=== PATIENT | female | born 1965 | race Caucasian/White ===

== ENCOUNTER 2021-07-01 17:44 | Outpatient (CLI) | payer BC, SELFPAY ==
--- NOTE | ~2021-07-01 | MR_ITS ---
EXAMINATION: MR knee RT wo con DATE: 07/01/2021 18:32 INDICATION: Right knee pain. TECHNIQUE: Magnetic resonance imaging (MRI) of the right knee was performed without intravenous contr ast. Sequences included axial PD-weighted FS FSE, coronal PD-weighted FSE and PD-weighted FS FSE, sag ittal PD-weighted FSE, and sagittal T2-weighted FS FSE. COMPARISON: Right knee radiographs 06/09/2021 FINDINGS: Medial compartment: There is an undersurface horizontal tear involving body and posterior horn of medial meniscus. There is shallow partial-thickness cartilage loss of tibial condyle involving the medial articular surface with mild subchondral edema-like marrow signal intensity. Femoral cartilage is normal. There are tiny osteophytes. Lateral compartment: Lateral meniscus is normal. Lateral compartment cartilage is normal. There are tiny osteophytes. Patellofemoral compartment: There is deep partial thickness cartilage loss at the junction of patellar medial facet and odd facet . There is deep partial thickness cartilage loss of central trochlea. There are tiny osteophytes. Ligaments and tendons: The anterior and posterior cruciate ligaments are normal. There is edema around medial collateral lig ament, consistent with mild sprain. Lateral collateral ligament complex is normal. There is mild berg llar tendinopathy. Fluid: There is a small knee joint effusion. There is mild prepatellar and superficial infrapatellar bursiti s. IMPRESSION: 1. Moderate chondrosis of patellofemoral compartment and mild chondrosis of medial compartment. 2. Tear of medial meniscus. 3. Mild sprain of medial collateral ligament (grade 1). 4. Small knee joint effusion. Reviewed, dictated and finalized at location [facility]. [facility] IMPRESSION: 1. Moderate chondrosis of patellofemoral compartment and mild chondrosis of med ial compartment. 2. Tear of medial meniscus. 3. Mild sprain of medial collateral ligament (grade 1). 4. Small knee joint effusion.
== END 2021-07-01 17:45 ==
PROVIDERS: Visit Provider Nurse Practitioner Family
DX: M25.561 Pain in right knee (principal); M22.2X1 Patellofemoral disorders, right knee; S83.241A Other tear of medial meniscus, current injury, right knee, initial encounter; S83.411A Sprain of medial collateral ligament of right knee, initial encounter; M25.461 Effusion, right knee
CPT/HCPCS: 73721

== ENCOUNTER 2021-07-16 11:11 | Outpatient (CLI) | payer BC, SELFPAY ==
--- NOTE | 2021-07-16 11:30 | ECG_ITS ---
Measurements Intervals [place] Rate: 70 P: 39 DC: 176 QRS: 16 QRSD: 89 T: 15 QT: 408 QTc: 442 Interpretive Statements SINUS RHYTHM LOW QRS VOLTAGE IN PRECORDIAL LEADS [QRS DEFLECTION < 1.0 mV IN CHEST LEADS] CANNOT RULE OUT OLD ANTERIOR VT NO PREVIOUS ECG AVAILABLE FOR COMPARISON Electronically Signed On 07-16-2021 18:44:27 CDT by Edda Trinidad M.D.
[2021-07-16 11:49] LABS: Anion Gap 4 mmol/L (8-16); Blood Urea Nitrogen 16 mg/dL (7-17); Calcium 8.7 mg/dL (8.4-10.2); Carbon Dioxide 31 mmol/L (22-30); Chloride 100 mmol/L (98-107); Estimated Glomerular Filt Rate > 60; Glucose 158 mg/dL (65-110); Sodium 135 mmol/L (137-145)
== END 2021-07-16 11:12 | disposition home or self-care (01) ==
LOC: ANHSURGERY 11:16
PROVIDERS: Anesthesiology; PCP Internal Medicine; Visit Provider Orthopaedic Surgery
DX: Z01.818 Encounter for other preprocedural examination (principal); E78.5 Hyperlipidemia, unspecified; I10 Essential (primary) hypertension; Z51.81 Encounter for therapeutic drug level monitoring; Z79.899 Other long term (current) drug therapy
CPT/HCPCS: 36415; 80048; 93005

== ENCOUNTER 2021-07-23 00:35 | Day surgery (SDC) | payer BC, SELFPAY ==
[2021-07-15 09:48] VITALS: BMI 32.9
--- NOTE | 2021-07-15 10:00 | PC.NURSE ---
Report to the Outpatient Waiting Room, entrance under the green pavilion located off [facility], at time 6:00 on date 07/23/21. OR Time: 8:00. - You and your visitor will be asked a series of questions to screen for COVID 19 for your protection. - A mask is required within the hospital. One visitor will be allowed to accompany the patient into the hospital. Patients visitor will be instructed to remain with patient at all times or leave the building. We will allow the visitor to come back to the postoperative area when patient is ready. Preoperative COVID Testing Requirements: No COVID Test needed if: (proof is required; if not received patient will have Rapid Test prior to entry) - Patient has received COVID Vaccine at least 14 days prior to procedure date or - Patient has positive COVID test result within last 90 days of surgery date. COVID Test needed if above criteria is not met Patients may have clear liquids (water, carbonated beverages, clear teas, apple juice) until 3 hours prior to surgery (5:00) with a maximum of 20 ounces. - No food from midnight until time of surgery Take the following medications with a SIP of water the morning of surgery: ESTRADIOL, VERAPAMIL, PAIN PILL (IF NEEDED) Medications to discontinue per physician: N/A Date to take last dose: N/A Please no make-up, nail faroese, hairspray, perfume, deodorant, or body powder the day of surgery. No jewelry (including any body piercings) or valuables the day of surgery, leave them at home. Please take a shower or bath the night before, or the morning of, surgery with an antibacterial soap. Wear comfortable, loose fitting clothing. - Jewelry must be removed prior to entering the operating room. Rings and piercings that are not removed may be cut off. - The hospital will not accept responsibility for valuables. - Please leave all valuables, including medications, at home the day of surgery. If you are going home after surgery, a licensed line haul driver must drive you home. - NO public transportation without another adult. - We recommend that an adult stay with you for 24 hours following discharge. - We also recommend that you do not drive, make important decision, drink alcoholic beverages, or take any drugs that were not prescribed by your health care provider for at least 24 hours after your discharge time. Follow any additional instructions given to you from your surgeon. Telephone instructions given to RAFA NOALND and asked if any additional questions and then verbalized understanding. Patient advised to call surgeon office or pre surgery nurse liaison [phone] if any additional questions.
[2021-07-23] VITALS (7 sets, daily range): BP systolic 108–151; BP diastolic 74–96; PULSE 67–94; RESP 12–18; TEMP 36.5–36.6; O2SAT 92–98
--- NOTE | 2021-07-23 06:41 | WPDANESEPPF ---
Anes - Initial Pre Proc Eval Procedure: Operation Date: 07/23/21 08:00 Proposed Procedures p Right Knee Arthroscopy, Debride Meniscus, Synovectomy, Chondroplasty, Proceed As Indicated - Negro Domínguez MD Date/Time: 07/23/21 06:41 Surgeon: Negro Domínguez MD Pre Op Diagnosis: rt knee pain, rt meniscus tear,chondromylasia,syno Patient Data Age: 55 Gender: F Height: 1.57 m Weight: 81.65 kg Allergies Allergy/AdvReac Type Severity Reaction Status Date / Time codeine Allergy Severe NAUSEA AND Verified 07/15/21 09:46 VOMITING Sulfa (Sulfonamide Allergy Severe HIVES Verified 07/15/21 09:46 Antibiotics) cephalexin Allergy Unknown Unknown Verified 07/15/21 09:46 CEPHALEXIN MONOHYDRATE Allergy Severe HIVES Uncoded 07/15/21 09:46 FOFAMAY Allergy Severe HIVES Uncoded 07/15/21 09:46 Home Medications Medication Instructions Recorded Confirmed Type hydrocodone 7.5 mg-acetaminophen 1 tablet PO Q6H PRN 06/09/21 07/15/21 History 300 mg tablet atorvastatin 20 mg PO HS 07/15/21 07/15/21 History cyclobenzaprine 10 mg PO HS PRN 07/15/21 07/15/21 History esomeprazole magnesium 40 mg PO BID 07/15/21 07/15/21 History estradiol 2 mg PO DAILY 07/15/21 07/15/21 History losartan-hydrochlorothiazide 1 tablet PO DAILY 07/15/21 07/15/21 History verapamil 360 mg PO DAILY 07/15/21 07/15/21 History Patient hx anesthesia problems: post op nausea/vomiting Family hx anesthesia problems: none Results Review: All pre-operative results and documents have been reviewed as part of the pre-operative evaluation. [facility] Past Medical History Medical History Arthritis Claustrophobia GERD (gastroesophageal reflux disease) High cholesterol HLD (hyperlipidemia) HTN (hypertension) Knee effusion, right Medial meniscus tear Obesity LIBERTAD (obstructive sleep apnea) Osteoporosis Right knee pain Traumatic arthritis of left wrist Weight gain Surgical History Surgical History History of breast surgery Right History of elbow surgery Bilateral History of right knee surgery History of toe surgery Right great toe Family History Family History Other Cerebrovascular accident Diabetes mellitus Family history of arthritis Family history of malignant neoplasm HLD (hyperlipidemia) Heart disease Hypertension Social History Social History Smoking packs per day: 0.5 Smoking cigarettes per day: 10.0 Years smoked: 36 Smoking pack-years: 18.00 Smoking status: Current every day smoker Tobacco type: cigarettes Additional smoking assessment comments: SMOKED 2 PACKS/DAY X 6 YRS - DOWN TO 1/2 PACK SINCE JUN. Alcohol intake: never Substance use: never Substance use type: does not use Living arrangements: with family Gender identity (if verbalized by the patient): Female Spiritual care concerns: No Anes - Eval Final PreProcedure Day of Procedure 07/23/21 06:41 Patient weight: obese Heart: regular rate and rhythm Lungs: decreased breath sounds Airway: Mallampati scale class II Neurological: alert and oriented Last oral intake: >/= 8 hours ASA classification: III Emergent: no Anesthetic plan: proceed Anesthesia type and monitoring: general LMA and standard monitoring Results Review: All pre-operative results and documents have been reviewed as part of the pre-operative evaluation. Informed Consent: The patient's anesthetic plan and its attendant risks and benefits were discussed with the patient/family/POA. Questions were solicited and answers provided to the satisfaction of the patient/family/POA.
[2021-07-23] MEDS: LACTATED RINGERS 1,000 ML 30 ML IV CONT (06:50)
--- NOTE | 2021-07-23 06:50 | WPDHPUPDATE1 ---
History and Physical Update Update Date/Time: 07/23/21 06:50 History and Physical has been reviewed, including an updated exam of the patient. There are NO changes in the patient's condition. Risks, benefits, and alternatives have been discussed and questions answered. Patient agrees to proceed with procedure.
[2021-07-23] MEDS: SCOPOLAMINE 1.5 MG PATCH TRANSDERM (06:51)
[2021-07-23] MEDS: ACETAMINOPHEN 500 MG TABLET 1000 MG PO (06:51)
[2021-07-23] MEDS: KETOROLAC 15 MG/ML VIAL (*BKC) IV PUSH (06:51)
[2021-07-23] MEDS: CLINDAMYCIN 900 MG/D5W 50 ML 900 MG/50 ML PIGGYBACK 50 MG IVPB (08:47)
[2021-07-23] MEDS: BUPIVACAINE HCL 0.25% PF 30 ML VIAL INFILTRATE (09:24)
--- NOTE | 2021-07-23 10:03 | W.PM.PROC2 ---
Procedure Note - Detailed Date of Procedure 07/23/21 Pre-op Diagnosis rt knee pain, rt meniscus tear,chondromylasia,synovectomy Post-op Diagnosis Same Procedure Performed RT knee arthroscopy, partial medial meniscectomy, chondroplasty, synovectomy Surgeon Negro Domínguez MD Regional Account Director 1st housing assistant property manager Anesthesia General Indications 55 yo woman with rt knee pain unresolved with injection, therapy, meds. MRI shows medial meniscus tear, chondromalacia. Presents for operative tx. Findings Right knee posterior horn medial meniscus tear, complex, degenerative extending to the medial posterior root. Grade 3 chondromalacia femoral trochlea. Grade 1 chondromalacia patella. Grade 2 chondromalacia medial femoral condyle. Lateral compartment intact. Extensive synovitis anterior fat pad and medial plica. Description of Procedure Informed consent given by patient. Operative extremity marked in preoperative holding area. Patient received intravenous antibiotics. Patient brought to operating room and underwent general anesthetic by anesthesia team. Positioned supine on operating room table. Right leg placed into a posterior thigh leg montgomery. Foot of the table dropped to 90? and right leg padded out of the field. Time-out performed confirming patient, site of surgery and plan. Right knee prepped and draped in usual sterile surgical fashion using ChloraPrep skin solution. Standard arthroscopic portals made by using a 11 blade knife for the anterior lateral portal 1st. Capsule penetrated bluntly. Camera and inflow started. The below operative findings noted. Intra-articular visualization used to position the anterior medial portal using 22 gauge spinal needle. A 11 blade knife used for the skin and blunt penetration of the capsule. 4.7 millimeter arthroscopic shaver introduced and partial medial meniscectomy of the loose and torn portion performed. Meniscus root debrided but intact. Edge of meniscus completed with arthroscopic Wand. Arthroscopic Wand used to perform chondroplasty of the patellofemoral articulation and the medial femoral condyle. Shaver reintroduced and a synovectomy performed of the anterior fat pad and extensive synovium as well as medial and lateral plica. Bleeding points coagulated with Wand. Knee inspected, no loose pieces noted. 1 liter of irrigant infused and suction out. Arthroscopic cannulas removed. Skin closed with 4 nylon interrupted suture. Local anesthetic with 0.25% Marcaine. Sterile dressing applied. Patient awoken from anesthesia, extubated and taken to recovery room in stable condition. All sponge needle and instrument counts correct at the end of the case. Implants None Estimated Blood Loss 5 Tourniquet Time 0 Drains No Packing No Pathology None sent Complications No immediate complications Condition Stable Disposition PACU
[2021-07-23] MEDS: fentaNYL CITRATE INJ (*CRX) 100 MCG/2 ML VIAL 25 MCG IV PUSH ×3 (10:14→10:58)
[2021-07-23] MEDS: oxyCODONE HCL (*CRX) 5 MG TAB IR PO (11:01)
== END 2021-07-23 11:54 | disposition home or self-care (01) ==
PROVIDERS: PCP Internal Medicine; Visit Provider Orthopaedic Surgery
PROC: (CPT 29870; principal; 2021-07-23 08:00)
DX: M23.321 Other meniscus derangements, posterior horn of medial meniscus, right knee (principal); M94.261 Chondromalacia, right knee; M65.861 Other synovitis and tenosynovitis, right lower leg; I10 Essential (primary) hypertension; E78.5 Hyperlipidemia, unspecified; G47.33 Obstructive sleep apnea (adult) (pediatric); M81.0 Age-related osteoporosis without current pathological fracture; K21.9 Gastro-esophageal reflux disease without esophagitis; E66.9 Obesity, unspecified; Z68.32 Body mass index [BMI] 32.0-32.9, adult; F17.210 Nicotine dependence, cigarettes, uncomplicated
CPT/HCPCS: 29881; A9270; J1885; J2250; J2270; J2704; J3010; J7120

== ENCOUNTER 2022-06-20 08:28 | Outpatient (CLI) | payer BC, SELFPAY ==
--- NOTE | ~2022-06-20 | MR_ITS ---
MRI of the right knee Clinical history: Pain Technique: Coronal proton density and proton density-weighted images, sagittal proton-density and T2 fat-sat images, and axial proton-density fat-saturated images were acquired. COMPARISON: 07/01/2021 Findings: Anterior and posterior cruciate ligaments are intact, unchanged from prior exam. Medial col lateral ligament and the lateral collateral complex are intact. Popliteus tendon is intact. Lateral meniscus is intact, without evidence of tear. There is horizontal tear involving the posterio r horn and body segment of the medial meniscus. There has been interval development of a large para m eniscal cyst along the medial joint line, measuring 3.2 x 2.1 x 3.3 cm in extent, multiple internal s eptations. There is high-grade chondromalacia at the inferior aspect of the femoral trochlea centrally. There is moderate chondromalacia along the medial patellar facet. Remaining articular cartilage is relatively well preserved. Bone marrow signals are unremarkable. Extensor mechanism is intact. There is no joint effusion, and no Reyes's cyst. Impression: Horizontal tear of the posterior horn and body of the medial meniscus is similar to prior exam, howev er there has been interval development of an associated 3.2 x 2.1 x 3.3 cm para-meniscal cyst along t he medial joint line. Chondromalacia of the patellofemoral compartment, as detailed above. Reviewed, dictated and finalized at [facility]. HOLOGIST ENGINEERING Impression: Horizontal tear of the posterior horn and body of the medial meniscus is simila r to prior exam, however there has been interval development of an associated 3 .2 x 2.1 x 3.3 cm para-meniscal cyst along the medial joint line. Chondromalacia of the patellofemoral compartment, as detailed above.
== END 2022-06-20 08:29 | disposition home or self-care (01) ==
PROVIDERS: PCP Internal Medicine; Visit Provider Orthopaedic Surgery
DX: S83.241D Other tear of medial meniscus, current injury, right knee, subsequent encounter (principal); X58.XXXD Exposure to other specified factors, subsequent encounter
CPT/HCPCS: 73721

== ENCOUNTER 2022-07-07 11:01 | Outpatient (CLI) | payer BC, SELFPAY ==
[2022-07-07 11:40] LABS: Anion Gap 7 mmol/L (8-16); Blood Urea Nitrogen 14 mg/dL (7-17); Calcium 9.3 mg/dL (8.4-10.2); Carbon Dioxide 29 mmol/L (22-30); Chloride 101 mmol/L (98-107); Estimated Glomerular Filt Rate > 60; Glucose 249 mg/dL (65-110); Potassium 3.2 mmol/L (3.4-5.0); Sodium 137 mmol/L (137-145)
== END 2022-07-07 11:02 | disposition home or self-care (01) ==
LOC: ANHSURGERY 11:05
PROVIDERS: Anesthesiology; PCP Internal Medicine; Visit Provider Orthopaedic Surgery
DX: Z79.899 Other long term (current) drug therapy (principal); Z01.818 Encounter for other preprocedural examination
CPT/HCPCS: 36415; 80048

== ENCOUNTER 2022-07-08 01:02 | Day surgery (SDC) | payer BC, SELFPAY ==
[2022-07-01 13:08] VITALS: BMI 30.7
--- NOTE | 2022-07-01 13:14 | PC.NURSE ---
Report to the Outpatient Waiting Room, entrance under the green pavilion located off [facility], at time 6:00 on date 07/08/22. Planned Procedure Time: 7:30. Time changes happen often and if your time is changed the preop area will call you the afternoon before. - You and your visitor will be asked to self-screen and do not enter if you have any COVID symptoms. - Only one visitor is requested with a max of two and NO children visitors are allowed at this time. - The patient visitor may be requested to leave or wait in car when not with patient due to distancing restrictions. - A mask is optional within the hospital at this time. Patients may have clear liquids (water, carbonated beverages, clear teas, apple juice) until 3 hours prior to surgery (4:30) with a maximum of 20 ounces. - No food from midnight until time of surgery Take the following medications with a SIP of water the morning of surgery: VERAPAMIL DO NOT STOP ANY OF YOUR OTHER PRESCRIPTION MEDICATIONS PRIOR TO SURGERY EXCEPT THE FOLLOWING Medications to discontinue per physician:l VITAMINS Date to take last dose: 07/04/22 Please no make-up, nail bengali, hairspray, perfume, deodorant, or body powder the day of surgery. No jewelry (including any body piercings) or valuables the day of surgery, leave them at home. Please take a shower or bath the night before, or the morning of, surgery with an antibacterial soap. Wear comfortable, loose fitting clothing. - Jewelry must be removed prior to entering the operating room. Rings and piercings that are not removed may be cut off. - The hospital will not accept responsibility for valuables. - Please leave all valuables, including medications, at home the day of surgery. If you are going home after surgery, a licensed truck driver instructor must drive you home. - NO public transportation without another adult if you receive anesthesia. - We recommend that an adult stay with you for 24 hours following discharge. - We also recommend that you do not drive, make important decision, drink alcoholic beverages, or take any drugs that were not prescribed by your health care provider for at least 24 hours after your discharge time. Follow any additional instructions given to you from your surgeon. If you or anyone in your household have experienced Covid symptoms in the past week, please notify your surgeon or the nurse liaison at the phone number below for possible testing. Telephone instructions given to PT - RAFA LUDIN and asked if any additional questions and then verbalized understanding. Patient advised to call surgeon office or pre surgery nurse liaison [phone] if any additional questions.
--- NOTE | 2022-07-07 09:56 | WPDANESEPPF ---
Anes - Initial Pre Proc Eval Procedure: Operation Date: 07/08/22 07:30 Proposed Procedures p Right Knee Arthroscopic Debridement Meniscus, Synovectomy, Chrondroplasty, Proceed as Indicated - Negro Domínguez MD Date/Time: 07/07/22 09:56 Surgeon: Negro Domínguez MD Pre Op Diagnosis: Rt Knee Pain Medial Meniscus Tear, Chondromalacia Patient Data Age: 56 Gender: F Height: 1.57 m Weight: 76.2 kg Allergies Allergy/AdvReac Type Severity Reaction Status Date / Time Sulfa (Sulfonamide Allergy Severe HIVES Verified 07/01/22 13:05 Antibiotics) cephalexin Allergy Unknown Hives Verified 07/01/22 13:05 codeine AdvReac Severe NAUSEA AND Verified 07/01/22 13:05 VOMITING FOFAMAY Allergy Severe HIVES Uncoded 07/01/22 13:05 Home Medications Medication Instructions Recorded Confirmed Type atorvastatin 20 mg tablet 20 mg PO HS 07/15/21 07/01/22 History esomeprazole magnesium 40 mg 40 mg PO BID 07/15/21 07/01/22 History capsule,delayed release estradiol 2 mg tablet 2 mg PO DAILY 07/15/21 07/01/22 History losartan 100 1 tablet PO DAILY 07/15/21 07/01/22 History mg-hydrochlorothiazide 25 mg tablet verapamil 360 mg 24 hr 360 mg PO DAILY 07/15/21 07/01/22 History capsule,extended release linaclotide 290 mcg capsule 290 mcg PO DAILY 07/01/22 07/01/22 History (Linzess) multivitamin 1 tablet PO DAILY 07/01/22 07/01/22 History Patient hx anesthesia problems: none Family hx anesthesia problems: none Results Review: All pre-operative results and documents have been reviewed as part of the pre-operative evaluation. [facility]MERLY [facility], [facility] Past Medical History Medical History (Updated 06/28/22 @ 13:52 by Negro Domínguez MD) Arthritis Arthritis of right knee Claustrophobia Cyst of medial meniscus of right knee Encounter for postoperative care GERD (gastroesophageal reflux disease) High cholesterol HLD (hyperlipidemia) HTN (hypertension) Knee effusion, right Medial meniscus tear Obesity LIBERTAD (obstructive sleep apnea) Osteoporosis Pes anserinus bursitis of right knee Right knee pain Traumatic arthritis of left wrist Weight gain Surgical History Surgical History History of breast surgery Right History of elbow surgery Bilateral History of right knee surgery History of toe surgery Right great toe Family History Family History Other Cerebrovascular accident Diabetes mellitus Family history of arthritis Family history of malignant neoplasm HLD (hyperlipidemia) Heart disease Hypertension Social History Social History Smoking packs per day: 0.5 Smoking cigarettes per day: 10.0 Years smoked: 30 Smoking pack-years: 15.00 Smoking status: Current every day smoker Tobacco type: cigarettes Additional smoking assessment comments: PREVIOUS 2 PPD X 7 YRS, THEN 1 PPD, NOW DOWN TO 5 CIGARETTES/DAY Alcohol intake: never Substance use: never Substance use type: does not use Living arrangements: with family Gender identity (if verbalized by the patient): Female Spiritual care concerns: No Anes - Eval Final PreProcedure Day of Procedure 07/07/22 09:56 Patient weight: obese Heart: regular rate and rhythm Lungs: decreased breath sounds Airway: Mallampati scale class II Neurological: alert and oriented Last oral intake: >/= 8 hours ASA classification: III Emergent: no Anesthetic plan: proceed Anesthesia type and monitoring: general LMA and standard monitoring Results Review: All pre-operative results and documents have been reviewed as part of the pre-operative evaluation. Informed Consent: The patient's anesthetic plan and its attendant risks and benefits were discussed with the patient/family/POA. Questions were solicited and answers provided to the satisfaction of the patient/family/POA.
[2022-07-08] VITALS (8 sets, daily range): BP systolic 104–130; BP diastolic 67–91; PULSE 65–80; RESP 12–16; TEMP 36.3–37; O2SAT 95–100
[2022-07-08] MEDS: LACTATED RINGERS 1,000 ML 30 ML IV CONT (06:45)
[2022-07-08] MEDS: KETOROLAC 15 MG/ML VIAL (*BKC) IV PUSH (06:53)
[2022-07-08] MEDS: ACETAMINOPHEN 500 MG TABLET 1000 MG PO (06:53)
[2022-07-08 07:15] LABS: Glucose Point of Care 162 mg/dl (65-105)
--- NOTE | 2022-07-08 07:21 | WPDHPUPDATE1 ---
History and Physical Update Update Date/Time: 07/08/22 07:21 History and Physical has been reviewed, including an updated exam of the patient. There are NO changes in the patient's condition. Risks, benefits, and alternatives have been discussed and questions answered. Patient agrees to proceed with procedure.
[2022-07-08] MEDS: CLINDAMYCIN 900 MG/D5W 50 ML 900 MG/50 ML PIGGYBACK 50 MG IVPB (07:30)
[2022-07-08] MEDS: BUPivacaine HCL 0.25% PF 10 ML VIAL INFILTRATE (07:55)
[2022-07-08] MEDS: BUPIVACAINE/EPINEPHRINE 0.25% 50 ML VIAL 10 ML INFILTRATE (07:56)
[2022-07-08] MEDS: fentaNYL CITRATE INJ (*CRX) 100 MCG/2 ML VIAL 25 MCG IV PUSH ×4 (08:59→09:24)
--- NOTE | 2022-07-08 09:03 | P.OP_ITS ---
Procedure Note - Detailed Date of Procedure 07/08/22 Pre-op Diagnosis Rt Knee Pain Medial Meniscus Tear, Chondromalacia Post-op Diagnosis Same Procedure Performed Right knee arthroscopy with partial medial meniscectomy and chondroplasty Surgeon Negro Domínguez MD Elevator Service Technician None Anesthesia General Indications 56-year-old woman who is 1 year status post right knee arthroscopy with debridement of medial meniscus tear. She had continued pain and swelling repeat MRI shows retear of the MRI as well as cyst formation. Presents now for operative treatment. Findings Large complex tear of the body of the medial meniscus posterior horn medial meniscus with associated cyst. Grade 3 central chondromalacia of the medial femoral condyle. Grade 2 femoral trochlea and patella. Lateral compartment intact. ACL intact. Description of Procedure Informed consent given by patient. Operative extremity marked in preoperative holding area. Patient received intravenous antibiotics. Patient brought to operating room and underwent general anesthetic by anesthesia team. Positioned supine on operating room table. Right leg placed into a posterior thigh leg montgomery. Foot of the table dropped to 90? and left leg padded out of the field. Time-out performed confirming patient, site of surgery and plan. Left knee prepped and draped in usual sterile surgical fashion using ChloraPrep skin s olution. Standard arthroscopic portals made by using a 11 blade knife for the anterior lateral portal 1st. Capsule penetrated bluntly. Camera and inflow started. The below operative findings noted. Intra-articular visualization used to position the anterior medial portal using 22 gauge spinal needle. A 11 blade knife used for the skin and blunt penetration of the capsule. 4.7 millimeter arthroscopic shaver introduced and partial medial meniscectomy of the loose and torn portion performed. Edge of meniscus completed with arthroscopic Wand. through the tear of the associated parameniscal cyst was able to be identified. This was decompressed with the shaver. Cyst was then treated with the ablation. Arthroscopic Wand used to perform chondroplasty of the patellofemoral articulation and the medial femoral condyle. Shaver reintroduced and a synovectomy performed of the anterior fat pad and extensive synovium as well as medial and lateral plica. Bleeding points coagulated with Wand. Knee inspected, no loose pieces noted. 1 liter of irrigant infused and suction out. Arthroscopic cannulas removed. Skin closed with 4 nylon interrupted suture. Local anesthetic with 0.25% Marcaine. Sterile dressing applied. Patient awoken from anesthesia, extubated and taken to recovery room in stable condition. All sponge needle and instrument counts correct at the end of the case. Estimated Blood Loss -5.0 Tourniquet Time 0 Drains No Packing No Pathology None sent Complications None Condition Stable Disposition PACU [facility] Billing Surgery - Charge Forward: Surgery Billing ([id number])
[2022-07-08] MEDS: oxyCODONE HCL (*CRX) 5 MG TAB IR PO (10:03)
== END 2022-07-08 10:48 | disposition home or self-care (01) ==
PROVIDERS: PCP Internal Medicine; Visit Provider Orthopaedic Surgery
PROC: (CPT 29870; principal; 2022-07-08 07:30)
DX: M23.321 Other meniscus derangements, posterior horn of medial meniscus, right knee (principal); M23.021 Cystic meniscus, posterior horn of medial meniscus, right knee; M94.261 Chondromalacia, right knee; M65.861 Other synovitis and tenosynovitis, right lower leg; I10 Essential (primary) hypertension; M81.0 Age-related osteoporosis without current pathological fracture; G47.33 Obstructive sleep apnea (adult) (pediatric); E78.00 Pure hypercholesterolemia, unspecified; K21.9 Gastro-esophageal reflux disease without esophagitis; E66.9 Obesity, unspecified; Z68.30 Body mass index [BMI] 30.0-30.9, adult; F17.210 Nicotine dependence, cigarettes, uncomplicated
CPT/HCPCS: 29881; 82948; A9270; J1100; J1885; J2250; J2405; J2704; J3010; J7120

== ENCOUNTER 2023-06-29 15:10 | Observation (INO) | payer BC, SELFPAY ==
[2023-06-29] VITALS (8 sets, daily range): BP systolic 101–142; BP diastolic 51–88; PULSE 67–94; RESP 17–20; TEMP 36.4–36.8; O2SAT 98–100; BMI 31.5
--- NOTE | ~2023-06-29 | CT_ITS ---
EXAMINATION: CT abdomen pelvis w con INDICATION: Lower abdominal pain, bloody stool TECHNIQUE: Computed tomographic images of the abdomen and pelvis were obtained after the administrati on of 100 cc of Omnipaque 350 intravenous contrast. The dose-length product (DLP) was 649.55 mGy-cm. Automated exposure control and iterative reconstruction technique were employed. COMPARISON: None available FINDINGS: Minimal dependent atelectasis is present in the lung bases. The heart size is normal. Chu es of cholecystectomy are noted. There are surgical changes near the gastroesophageal junction. The l iver is diffusely low in attenuation when compared with the spleen, consistent with hepatic steatosis . The spleen, pancreas, and adrenal glands are normal. The left kidney is normal. There is a 3mm cyst of the right kidney. No pathologically enlarged abdominal or pelvic lymph nodes are identified. No f ree intraperitoneal gas or evidence of bowel obstruction. There is a greater than normal number of fl uid-filled, nondistended small bowel loops. Colonic diverticulosis is present. There is mild fat stra nding near the sigmoid colon. There is mild lumbar spondylosis. IMPRESSION: 1. Multiple nondistended, fluid-filled loops of large and small bowel, suggestive of enteritis. 2. Diverticulosis with mild fat stranding near the sigmoid colon which could reflect mild, uncomplica devonte acute diverticulitis 3. Diffuse hepatic steatosis. Reviewed, dictated and finalized at location F. [facility] IMPRESSION: 1. Multiple nondistended, fluid-filled loops of large and small bowel, suggesti ve of enteritis. 2. Diverticulosis with mild fat stranding near the sigmoid colon which could re flect mild, uncomplicated acute diverticulitis 3. Diffuse hepatic steatosis.
--- NOTE | 2023-06-29 15:28 | ED.NAVMDI ---
HPI - Nausea/Vomiting/Diarrhea General Chief complaint: Nausea/Vomiting/Diarrhea Stated complaint: N/V Time Seen by Provider: 06/29/23 15:26 Source: patient and family () Mode of arrival: ambulatory Limitations: no limitations History of Present Illness HPI Narrative: Patient presents with nausea, dry heaves, and multiple episodes diarrhea, symptoms occurred acutely starting approximately 11:00 a.m. this morning. They are associated with lower abdominal pain. She also noticed that she started having blood in her stool that was initially dark brown but then became bright red starting this morning. She is not on anticoagulation. She has not actually vomiting but is observed gagging and trying to force herself to vomit by sticking her tongue down her throat. Denies new medications. Denies marijuana. History Barretts esophagus for which Dr Mcdowell has performed EGD. Last colonoscopy 5-6 years ago. Denies chest pain. Related Data Home Medications Medication Instructions Recorded Confirmed atorvastatin 20 mg tablet 20 mg PO DAILY 07/15/21 06/29/23 esomeprazole magnesium 40 mg 40 mg PO BID 07/15/21 06/29/23 capsule,delayed release losartan 100 1 tablet PO DAILY 07/15/21 06/29/23 mg-hydrochlorothiazide 25 mg tablet verapamil 360 mg 24 hr 360 mg PO DAILY 07/15/21 06/29/23 capsule,extended release linaclotide 290 mcg capsule 290 mcg PO DAILY 07/01/22 06/29/23 (Linzess) multivitamin 1 tablet PO DAILY 07/01/22 06/29/23 alprazolam 0.5 mg tablet 0.5 mg PO TID PRN Anxiety 06/29/23 06/29/23 conjugated estrogens 0.625 mg 0.625 mg PO DAILY 06/29/23 06/29/23 tablet (Premarin) progesterone micronized 200 mg 200 mg PO QHS 06/29/23 06/29/23 capsule ropinirole 0.5 mg tablet 0.5 mg PO QHS 06/29/23 06/29/23 Allergies Allergy/AdvReac Type Severity Reaction Status Date / Time Sulfa (Sulfonamide Allergy Severe HIVES Verified 05/11/23 09:17 Antibiotics) cephalexin Allergy Unknown Hives Verified 05/11/23 09:17 codeine AdvReac Severe NAUSEA AND Verified 05/11/23 09:17 VOMITING FOFAMAY Allergy Severe HIVES Uncoded 05/11/23 09:17 [facility] Past Medical History Medical History (Updated 06/30/23 @ 10:45 by Terrie Ramos MD) Arthritis Arthritis of right knee [place] esophagus Claustrophobia Cyst of medial meniscus of right knee GERD (gastroesophageal reflux disease) Hepatic steatosis High cholesterol HLD (hyperlipidemia) HTN (hypertension) Obesity LIBERTAD (obstructive sleep apnea) Osteoporosis Pes anserinus bursitis of right knee Traumatic arthritis of left wrist Surgical History Surgical History (Updated 06/30/23 @ 10:35 by Terrie Ramos MD) History of appendectomy (~1989) History of bladder suspension procedure History of breast surgery Right lumpectomy with benign pathology History of colonoscopy approximately History of elbow surgery Bilateral with left him performed in 2017 History of esophagogastroduodenoscopy (EGD) Dr. Mcdowell History of right knee surgery X2 to 06/2021 and again 06/2022 History of toe surgery Right great toe x2 Hx of cholecystectomy (~1990) Status post laparoscopic Nichole fundoplication (~2001) Family History Family History (Updated 06/30/23 @ 08:31 by Yamileth Lubin DO) Son Diabetes mellitus Cerebrovascular accident Hypertension Father , Diagnoses 70 Diabetes mellitus Hypertension Heart disease Acute myocardial infarction Malignant neoplasm of prostate Mother , Diet age 69 Hypertension CHF (congestive heart failure) Other HLD (hyperlipidemia) Social History Social History (Updated 06/30/23 @ 08:35 by Yamileth Lubin DO) Social History: Patient lives with her of 37 years. They have [facility]. They raised 2 sons. One of her sons lives with her after he had a stroke. She used to smoke 2 packs of cigarettes per day from the age of 15 until the fall of 2022. She denies history of significant al
[2023-06-29] MEDS: ONDANSETRON INJ 4 MG/2 ML VIAL IV PUSH (15:48)
[2023-06-29 15:56] LABS: Basophils Absolute Auto 0.1 K/mm3 (0.0-0.1); Basophils Percent Auto 0.6 % (0.2-1.2); Eosinophils Percent Auto 0.2 % (0-4.4); Hematocrit 45.3 % (37.0-47.0); Hemoglobin 15.5 g/dL (12.0-15.0); Immature Granulocyte Absolute 0.09 K/mm3 (0.00-0.031); Immature Granulocyte Percent A 0.5 % (0-0.5); Lymphocytes Absolute Auto 2.62 K/mm3 (0.9-3.2); Lymphocytes Percent Auto 14.3 % (18.3-44.2); Mean Corpuscular HGB Conc 34.2 g/dl (32-36); Mean Corpuscular Hemoglobin 29.6 pg (26-34); Mean Corpuscular Volume 86.6 fl (80-100); Mean Platelet Volume 10.8 fl (7.4-10.4); Monocytes Absolute Auto 0.5 K/mm3 (0.1-0.6); Monocytes Percent Auto 2.9 % (2.6-8.5); Neutrophils Percent Auto 81.5 % (45.5-73.1); Platelet Count Result 345 k/mm3 (150-375); Red Blood Count 5.23 M/mm3 (4.2-5.4); Red Cell Distribution Width 12.7 % (11.5-14.5); White Blood Count 18.4 K/mm3 (4.5-10.0)
[2023-06-29 16:05] LABS: Alanine Aminotransferase 54 U/L (6-35); Albumin Level 4.9 g/dL (3.5-5.1); Alkaline Phosphatase 101 U/L (38-126); Anion Gap 10 mmol/L (8-16); Aspartate Amino Transferase 51 U/L (14-36); Bilirubin,Total 0.8 mg/dL (0.2-1.3); Blood Urea Nitrogen 20 mg/dL (7-17); Calcium 10.5 mg/dL (8.4-10.2); Carbon Dioxide 26 mmol/L (22-30); Chloride 101 mmol/L (98-107); Estimated CRCL calculation 86 ml/min; Estimated Glomerular Filt Rate > 60; Glucose 196 mg/dL (65-110); Lipase 41 U/L (23-300); Potassium 3.1 mmol/L (3.4-5.0); Sodium 137 mmol/L (137-145)
[2023-06-29 16:06] LABS: Lactic Acid Reflex 2.6 mmol/L (0.7-2.0)
[2023-06-29 16:11] LABS: INR 0.9; Prothrombin Time 12.8 Seconds (11.1-14.7)
[2023-06-29 16:12] LABS: Partial Thromboplastin Time 24.1 SECONDS (22.3-36.8)
[2023-06-29] MEDS: METOCLOPRAMIDE HCL INJ 10 MG/2 ML VIAL IV PUSH (16:32)
[2023-06-29] MEDS: SODIUM CHLORIDE 0.9% IV 1,000 ML 999 ML IV CONT ×2 (16:32→17:55)
[2023-06-29 16:41] LABS: Magnesium 1.5 mg/dL (1.6-2.3)
[2023-06-29 16:49] LABS: Influenza A QL RT-PCR Negative (Negative); Influenza B QL RT-PCR Negative (Negative); RSV RNA, RT-PCR Negative (Negative); SARS-CoV-2 RNA PCR Negative (Negative)
[2023-06-29] MEDS: HALOPERIDOL LACTATE 5 MG/ML VIAL 2.5 MG IV PUSH (17:53)
[2023-06-29 17:54] LABS: Appearance Urine Clear (Clear); Bacteria Urine None Seen /hpf; Bilirubin Urine Negative (Negative); Blood Urine 1+ (Negative); Color Urine Yellow (Yellow); Glucose Urine UA Negative (Negative); Ketones Urine Negative (Negative); Leukocyte Esterase Ur Negative LEU/UL (Negative); Nitrate Urine Negative (Negative); Non Pathogenic Casts 0-2; Protein Urine Negative (Negative); RBC Urine 0-2 /hpf (0-2); Squamous Epithelial Cell Urine None seen /hpf (Few); Urobilinogen Urine 0.2 mg/dL (<2.0); WBC Urine 0-5 /hpf
[2023-06-29] MEDS: MAGNESIUM SULF 1 GM/D5W 100 ML 1 GM/100 ML BAG IVPB (17:55)
[2023-06-29 17:56] LABS: Add Urine Microscopic? YES; Specific Grav Ur 1.063 (1.001-1.035)
[2023-06-29 18:53] LABS: Reflex Lactic Acid Yes or No Add Lactic
[2023-06-29] MEDS: CIPROFLOXACIN 400 MG/D5W 200ML 200 ML 200 MG IVPB (19:03)
[2023-06-29 19:17] LABS: Lactic Acid 1.6 mmol/L (0.7-2.0)
[2023-06-29] MEDS: metroNIDAZOLE 500 MG/ISO 100ML 500 MG/100 ML BAG 100 MG IVPB (20:02)
--- NOTE | 2023-06-29 21:48 | ADMGEN ---
This patient, Chioma Lugo, was admitted to [facility] Surg Room 329-01. Patient/family oriented to hospital policies and general routines including ID bracelet, bed and alarms, visiting hours, pain management, procedures, bathroom and other care routines, personal items, smoking policy, room service/diet, and visiting hours. Information on how to activate the Rapid Response Team has been discussed. Patient/Family are encouraged to report perceived risks to care and to ask questions if they do not understand what they are told or what they should do.
[2023-06-30] MEDS: PANTOPRAZOLE SODIUM IV 40 MG VIAL IV PUSH ×3 (01:04→20:11)
[2023-06-30] MEDS: rOPINIRole HCL 0.5 MG TABLET PO ×2 (01:04→20:11)
[2023-06-30] MEDS: ALPRAZolam (*CRX) 0.5 MG TABLET PO ×3 (02:13→21:10)
[2023-06-30] MEDS: KCL 40 MEQ/0.45% NS 1,000 ML 150 ML IV CONT ×2 (04:00→20:20)
--- NOTE | 2023-06-30 04:01 | PM.IMHP ---
H&P: HPI History of Present Illness Date/Time: 06/30/23 04:01 Chief Complaint: Nausea on vomiting and bloody stools Narrative: 57-year-old female with a past medical history of anxiety, hyperlipidemia, GERD, irritable bowel disease, chronic pain and essential hypertension to the ER with nausea, vomiting and diarrhea. Patient reports that she usually has here wall syndrome with constipation but around 11:00 o'clock today suddenly developed nausea, significant dry heaves with only a small amount of emesis and multiple loose diarrheal stools. After she had numerous diarrheal stools she then started having some bright red blood within the stool. She reports by the time the blood started in her stool she her perineum was already roll and painful to wipe. She denies any recent ill contacts or consumption of contaminated food or water. She has not had any fevers or chills. She reports that she has been having more dry heaves them vomiting but this is not unusual for her given her history of Nichole fundoplication in 2008. She reports minimal abdominal pain in the suprapubic region. She denies any dysuria or changes in urinary frequency. In the ER CT scan demonstrated multiple loops of fluid-filled large and small bowel suggestive of enteritis and diverticulosis with mild fat stranding near the sigmoid colon which could reflect mild uncomplicated acute diverticulitis. Patient has diffuse hepatic steatosis noted as well. Patient was having intractable vomiting in the ER and required dose of regular in Zofran and dry heaves did not improve until after she received a dose of Haldol. She reports that she feels significantly better at this time in since admission to the hospital has strength 3 sugar containing soda as and a pitcher of water. She states that she is eager to go home. In the ER she was noted to be hypokalemic. Patient refused the oral potassium supplementation since it was liquid formulation. Patient was given 2 L of IV fluids in the ER. Review of Systems Review of Systems: 12 systems were reviewed with pertinent positives and negatives per HPI. Except as documented in the HPI, all other systems were reviewed and are negative. [facility] Past Medical History Medical History (Updated 06/30/23 @ 08:34 by Yamileth Lubin DO) Arthritis Arthritis of right knee Claustrophobia Cyst of medial meniscus of right knee GERD (gastroesophageal reflux disease) Hepatic steatosis High cholesterol HLD (hyperlipidemia) HTN (hypertension) Obesity LIBERTAD (obstructive sleep apnea) Osteoporosis Pes anserinus bursitis of right knee Traumatic arthritis of left wrist Surgical History Surgical History (Updated 06/30/23 @ 04:10 by Yamileth Lubin DO) History of appendectomy (~1989) History of bladder suspension procedure History of breast surgery Right lumpectomy with benign pathology History of elbow surgery Bilateral with left him performed in 2017 History of right knee surgery X2 to 06/2021 and again 06/2022 History of toe surgery Right great toe x2 Hx of cholecystectomy (~1990) Status post laparoscopic Nichole fundoplication (~2001) Family History Family History (Updated 06/30/23 @ 08:31 by Yamileth Lubin DO) Son Diabetes mellitus Cerebrovascular accident Hypertension Father , Diagnoses 70 Diabetes mellitus Hypertension Heart disease Acute myocardial infarction Malignant neoplasm of prostate Mother , Diet age 69 Hypertension CHF (congestive heart failure) Other HLD (hyperlipidemia) Social History Social History (Updated 06/30/23 @ 08:35 by Yamileth Lubin DO) Social History: Patient lives with her of 37 years. They have [facility]. They raised 2 sons. One of her sons lives with her after he had a stroke. She used to smoke 2 packs of cigarettes per day from the age of 15 until the fall of 2022. She denies history of significant alcohol or illicit substance use. Code st
[2023-06-30] MEDS: metroNIDAZOLE 250MG/ISO 50 ML 250 MG/50 ML BAG 50 MG IVPB ×4 (04:24→21:40)
[2023-06-30 06:00] VITALS: BP 113/78; PULSE 70; RESP 18; TEMP 36.4; O2SAT 98
[2023-06-30 07:02] LABS: Basophils Absolute Auto 0.1 K/mm3 (0.0-0.1); Basophils Percent Auto 0.4 % (0.2-1.2); Eosinophils Absolute Auto 0.1 K/mm3 (0-0.3); Eosinophils Percent Auto 0.4 % (0-4.4); Hematocrit 37.2 % (37.0-47.0); Hemoglobin 12.8 g/dL (12.0-15.0); Immature Granulocyte Absolute 0.07 K/mm3 (0.00-0.031); Immature Granulocyte Percent A 0.4 % (0-0.5); Lymphocytes Absolute Auto 3.96 K/mm3 (0.9-3.2); Lymphocytes Percent Auto 24.5 % (18.3-44.2); Mean Corpuscular HGB Conc 34.4 g/dl (32-36); Mean Corpuscular Volume 87.3 fl (80-100); Mean Platelet Volume 9.8 fl (7.4-10.4); Monocytes Absolute Auto 1.1 K/mm3 (0.1-0.6); Monocytes Percent Auto 6.7 % (2.6-8.5); Neutrophils Absolute Auto 10.9 K/mm3 (1.3-6.7); Neutrophils Percent Auto 67.6 % (45.5-73.1); Platelet Count Result 285 k/mm3 (150-375); Red Blood Count 4.26 M/mm3 (4.2-5.4); Red Cell Distribution Width 12.4 % (11.5-14.5); White Blood Count 16.2 K/mm3 (4.5-10.0)
[2023-06-30 07:12] LABS: Alanine Aminotransferase 39 U/L (6-35); Albumin Level 3.7 g/dL (3.5-5.1); Alkaline Phosphatase 75 U/L (38-126); Anion Gap 2 mmol/L (8-16); Aspartate Amino Transferase 36 U/L (14-36); Bilirubin,Total 0.6 mg/dL (0.2-1.3); Blood Urea Nitrogen 8 mg/dL (7-17); Calcium 8.8 mg/dL (8.4-10.2); Carbon Dioxide 29 mmol/L (22-30); Chloride 105 mmol/L (98-107); Estimated CRCL calculation 103 ml/min; Estimated Glomerular Filt Rate > 60; Glucose 172 mg/dL (65-110); Magnesium 1.9 mg/dL (1.6-2.3); Potassium 2.9 mmol/L (3.4-5.0); Sodium 136 mmol/L (137-145)
[2023-06-30 07:34] LABS: Hemoglobin A1C 7.1 % (<5.7)
[2023-06-30] MEDS: CIPROFLOXACIN 400 MG/D5W 200ML 200 ML 200 MG IVPB ×2 (08:07→20:10)
[2023-06-30] MEDS: LOSARTAN POTASSIUM 100 MG TABLET PO (08:07)
[2023-06-30] MEDS: ATORVASTATIN 20 MG TABLET PO (08:07)
[2023-06-30] MEDS: hydroCHLOROthiazide 25 MG TABLET PO (08:07)
[2023-06-30] MEDS: POTASSIUM CHLORIDE 20 MEQ ER TABLET 40 MEQ PO (10:22)
[2023-06-30] MEDS: VERAPAMIL HCL 180 MG TABLET ER 360 MG PO (10:22)
[2023-06-30] MEDS: POTASSIUM CHLORIDE INJ 40 MEQ in SODIUM CHLORIDE 0.9% IV 500 ML 130 MEQ IVPB (11:54)
[2023-06-30] MEDS: MAGNESIUM SULF 2 GM/WATER 50ML 2 GM/50 ML BAG IVPB (11:54)
--- NOTE | 2023-06-30 12:17 | PM.IMPN ---
Progress Note: A&P Assessment and Plan (1) Acute diverticulitis: Code(s): K57.92 - Diverticulitis of intestine, part unspecified, without perforation or abscess without bleeding Status: Acute Assessment and Plan: patient is on IV Cipro and Flagyl. C diff is pending. (2) Enteritis: Code(s): K52.9 - Noninfective gastroenteritis and colitis, unspecified Status: Acute Assessment and Plan: C diff pending, treating possible coexisting diverticulitis with Cipro and Flagyl IV. (3) Acute hypokalemia: Code(s): E87.6 - Hypokalemia Status: Acute Assessment and Plan: Potassium level 2.9. Suspect significant loss from GI source. Ordered oral and IV replacement and will recheck this afternoon as well as in the morning. Patient was wanting to go home but agreed to stay when discussing the importance of repletion of hypokalemia as well as determining whether she has C diff or not. (4) Dehydration: Code(s): E86.0 - Dehydration Status: Acute Assessment and Plan: Recent poor oral intake as well as diarrhea, nausea and some vomiting despite history of Nichole fundoplication (5) Hyperglycemia: Code(s): R73.9 - Hyperglycemia, unspecified Status: Acute Assessment and Plan: Hemoglobin A1c 7.[address] her as a newly diagnosed diabetic. We will not start metformin at this time due to current diarrheal state. We will refer patient to primary care for further workup and treatment. Will check a.c. HS glucose sliding scale insulin while hospitalized. (6) Transaminitis: Code(s): R74.01 - Elevation of levels of liver transaminase levels Status: Acute Assessment and Plan: minimal elevation and already improvement, not a significant finding at this time. Imaging does show hepatic steatosis. Will refer patient back to primary care for follow-up on this. Time Spent With Patient Time with patient: Greater than 35 minutes Subjective Date/time seen: 06/30/23 12:17 Interval history: This is a 57-year-old female patient with a history including HTN, LIBERTAD, HLD, GERD, anxiety, and IBS-C who has been experiencing dry heaves and diarrheal stool that now has some blood in it. Patient evaluated in the emergency department found to have multiple loops of fluid-filled large and small intestine indicative of enteritis with stranding concerning for diverticulitis. White blood cell count is elevated and potassium level is significantly low. Patient is experiencing nausea which is improving slightly since admission. IV potassium and oral potassium have been ordered. Patient reports that her diarrhea has slowed down but she describes blood throughout stool. Patient was wanting to be discharged this afternoon and I explained that we would want to trend H&H and recheck potassium to make sure we are making improvements. Patient does have anxiety so we will make sure that her home anxiety medicine has been re-initiated. Is also requesting that her hormone replacements be reordered. She takes progesterone and Premarin. Linzess is on hold due to imaging finding indicative of more diarrhea impending. Review of Systems Review of Systems: All systems reviewed & are unremarkable except as noted in HPI and below Exam Narrative: Weight 78.2 kg BMI 31.5 Const: Other: No acute distress, obese, appears much older than stated HENMT: Other: Mucous membranes are moist, no oral pharyngeal erythema, edentulous Eyes: Other: Pupils are equal and reactive, no scleral icterus, no conjunctival pallor Neck: Other: No JVD, no lymphadenopathy Resp: Other: Clear to auscultation bilaterally, no increased work of breathing Cardio: Other: Regular rate, regular rhythm, 2+ bilateral radial pedal pulses GI: Other: Soft, minimally tender in the suprapubic region, normoactive bowel sounds, nondistended, no obvious orga
[2023-06-30 13:50] VITALS: BP 112/71; PULSE 76; RESP 16; TEMP 36.4; O2SAT 99
[2023-06-30] MEDS: oxyCODONE/ACETAMINOPHEN (*CRX) 5-325 MG TABLET 1 TABLET PO ×2 (14:49→21:09)
[2023-06-30 16:29] LABS: Basophils Absolute Auto 0.1 K/mm3 (0.0-0.1); Basophils Percent Auto 0.4 % (0.2-1.2); Eosinophils Absolute Auto 0.1 K/mm3 (0-0.3); Eosinophils Percent Auto 0.7 % (0-4.4); Hemoglobin 12.8 g/dL (12.0-15.0); Immature Granulocyte Absolute 0.05 K/mm3 (0.00-0.031); Immature Granulocyte Percent A 0.3 % (0-0.5); Lymphocytes Absolute Auto 4.34 K/mm3 (0.9-3.2); Lymphocytes Percent Auto 28.6 % (18.3-44.2); Mean Corpuscular HGB Conc 34.6 g/dl (32-36); Mean Corpuscular Volume 86.7 fl (80-100); Mean Platelet Volume 10.5 fl (7.4-10.4); Monocytes Percent Auto 6.8 % (2.6-8.5); Neutrophils Absolute Auto 9.6 K/mm3 (1.3-6.7); Neutrophils Percent Auto 63.2 % (45.5-73.1); Platelet Count Result 287 k/mm3 (150-375); Red Blood Count 4.27 M/mm3 (4.2-5.4); Red Cell Distribution Width 12.7 % (11.5-14.5); White Blood Count 15.2 K/mm3 (4.5-10.0)
[2023-06-30 16:41] LABS: Anion Gap 5 mmol/L (8-16); Blood Urea Nitrogen 7 mg/dL (7-17); Calcium 8.9 mg/dL (8.4-10.2); Carbon Dioxide 27 mmol/L (22-30); Chloride 105 mmol/L (98-107); Estimated CRCL calculation 103 ml/min; Estimated Glomerular Filt Rate > 60; Glucose 192 mg/dL (65-110); Potassium 3.8 mmol/L (3.4-5.0); Sodium 137 mmol/L (137-145)
--- NOTE | 2023-06-30 20:59 | PHAR ---
Pill with imprint PR2 is White, Capsule/[place] and has been identified as Progesterone 200 mg. It is supplied by [employer].
[2023-06-30 21:12] VITALS: BP 109/74; PULSE 76; RESP 16; TEMP 36.8; O2SAT 99
[2023-06-30] MEDS: ONDANSETRON INJ 4 MG/2 ML VIAL IV PUSH (22:41)
[2023-06-30 22:42] LABS: IFOB Positive Control Positive; Immunochemical Fecal Occult Bl Positive (N)
[2023-06-30 23:10] LABS: Toxigenic C. Diff NEGATIVE (NEGATIVE)
[2023-07-01] MEDS: metroNIDAZOLE 250MG/ISO 50 ML 250 MG/50 ML BAG 50 MG IVPB ×2 (04:56→08:32)
[2023-07-01] MEDS: KCL 40 MEQ/0.45% NS 1,000 ML 150 ML IV CONT (04:56)
[2023-07-01] MEDS: ONDANSETRON INJ 4 MG/2 ML VIAL IV PUSH (05:07)
[2023-07-01] MEDS: ALPRAZolam (*CRX) 0.5 MG TABLET PO ×2 (05:07→08:13)
[2023-07-01] MEDS: oxyCODONE/ACETAMINOPHEN (*CRX) 5-325 MG TABLET 1 TABLET PO (05:07)
[2023-07-01 05:26] VITALS: BP 95/50; PULSE 65; RESP 16; TEMP 36.2; O2SAT 98
[2023-07-01 06:33] LABS: Basophils Absolute Auto 0.1 K/mm3 (0.0-0.1); Basophils Percent Auto 0.7 % (0.2-1.2); Eosinophils Absolute Auto 0.2 K/mm3 (0-0.3); Eosinophils Percent Auto 1.9 % (0-4.4); Hematocrit 35.7 % (37.0-47.0); Hemoglobin 11.9 g/dL (12.0-15.0); Immature Granulocyte Absolute 0.04 K/mm3 (0.00-0.031); Immature Granulocyte Percent A 0.3 % (0-0.5); Lymphocytes Absolute Auto 4.09 K/mm3 (0.9-3.2); Lymphocytes Percent Auto 34.8 % (18.3-44.2); Mean Corpuscular HGB Conc 33.3 g/dl (32-36); Mean Corpuscular Hemoglobin 29.8 pg (26-34); Mean Corpuscular Volume 89.5 fl (80-100); Mean Platelet Volume 10.7 fl (7.4-10.4); Monocytes Absolute Auto 0.8 K/mm3 (0.1-0.6); Monocytes Percent Auto 6.4 % (2.6-8.5); Neutrophils Absolute Auto 6.6 K/mm3 (1.3-6.7); Neutrophils Percent Auto 55.9 % (45.5-73.1); Platelet Count Result 263 k/mm3 (150-375); Red Blood Count 3.99 M/mm3 (4.2-5.4); Red Cell Distribution Width 12.6 % (11.5-14.5); White Blood Count 11.8 K/mm3 (4.5-10.0)
[2023-07-01 06:43] LABS: Alanine Aminotransferase 31 U/L (6-35); Albumin Level 3.4 g/dL (3.5-5.1); Alkaline Phosphatase 70 U/L (38-126); Anion Gap 6 mmol/L (8-16); Aspartate Amino Transferase 31 U/L (14-36); Bilirubin,Total 0.5 mg/dL (0.2-1.3); Blood Urea Nitrogen 7 mg/dL (7-17); Calcium 8.4 mg/dL (8.4-10.2); Carbon Dioxide 23 mmol/L (22-30); Chloride 107 mmol/L (98-107); Estimated CRCL calculation 103 ml/min; Estimated Glomerular Filt Rate > 60; Glucose 171 mg/dL (65-110); Magnesium 1.8 mg/dL (1.6-2.3); Potassium 3.7 mmol/L (3.4-5.0); Sodium 136 mmol/L (137-145)
[2023-07-01 06:57] LABS: Hypochromasia 1+ (NORMAL); Platelet Estimate Adequate (Adequate); Schistocytes None Seen (NORMAL)
[2023-07-01 06:58] LABS: Atypical Lymphocytes Present
[2023-07-01] MEDS: ATORVASTATIN 20 MG TABLET PO (08:13)
[2023-07-01] MEDS: VERAPAMIL HCL 180 MG TABLET ER 360 MG PO (08:13)
[2023-07-01] MEDS: LOSARTAN POTASSIUM 100 MG TABLET PO (08:13)
[2023-07-01] MEDS: ESTROGENS, CONJUGATED 0.625 MG TABLET PO (08:13)
[2023-07-01] MEDS: CIPROFLOXACIN 400 MG/D5W 200ML 200 ML 200 MG IVPB (08:18)
[2023-07-01] MEDS: PANTOPRAZOLE SODIUM IV 40 MG VIAL IV PUSH (08:18)
--- NOTE | 2023-07-01 10:42 | PM.DS ---
DS: Admitting Diagnosis Discharge Date 07/01/2023 Admitting Diagnosis acute diverticulitis, enteritis, acute hypokalemia, hyperglycemia, transaminitis DS: Discharge Diagnosis Discharge Diagnosis (1) Acute diverticulitis: Code(s): K57.92 - Diverticulitis of intestine, part unspecified, without perforation or abscess without bleeding Status: Acute (2) Enteritis: Code(s): K52.9 - Noninfective gastroenteritis and colitis, unspecified Status: Acute (3) Acute hypokalemia: Code(s): E87.6 - Hypokalemia Status: Acute (4) Dehydration: Code(s): E86.0 - Dehydration Status: Acute (5) Transaminitis: Code(s): R74.01 - Elevation of levels of liver transaminase levels Status: Acute (6) Diabetes mellitus with hyperglycemia: Code(s): E11.65 - Type 2 diabetes mellitus with hyperglycemia Status: Acute DS: Summary Hospital Course Reason for hospitalization: diarrhea, hypokalemia, abdominal pain, nausea/ vomiting Hospital Course: This is a 57-year-old female patient who saw care in the emergency department for nausea vomiting diarrhea found to have acute diverticulitis, enteritis, hypokalemia, hyperglycemia and elevation of liver enzymes. She received IV fluids and her Linzess was held. Patient has a history of IBS-C. She had a significantly elevated white count. After several episodes of diarrhea she had some blood in the stool. Her hemoglobin and hematocrit remain stable and slightly decreased as expected with the amount of IV fluids she received. She also received IV and oral repletion of potassium. Patient really wanted to be discharged yesterday but agreed to stay overnight for recheck this morning. C diff was negative. Her symptoms had greatly improved today and we discussed return precautions. White blood cell count also improved. She is discharged with Zofran, metronidazole and ciprofloxacin. Additionally, patient was informed that her blood sugar was elevated and her A1c was 7.1. I discussed dietary changes and follow-up with primary care. I would not want to start metformin given her diarrhea and enteritis at this time. Her is diabetic and controlled with lifestyle she so patient is aware changes she needs to make. She agrees to follow-up with primary care to determine if medication needs to be started for what appears to be 1st diagnosis type 2 diabetes. Status at Discharge Cognitive/behavioral status at discharge: Awake alert oriented and pleasant Functional status at discharge: independent ambulation Overall status at discharge: patient is progressing back to baseline Time Spent with Patient Time attestation: Total time spent providing and/or coordinating discharge services: 35 minutes Time spent: Greater than 30 minutes Exam Narrative: Weight 78.2 kg BMI 31.5 Const: Other: No acute distress, obese, appears older than stated HENMT: Other: Mucous membranes are moist, no oral pharyngeal erythema, edentulous Eyes: Other: Pupils are equal and reactive, no scleral icterus, no conjunctival pallor Neck: Other: No JVD, no lymphadenopathy Resp: Other: Clear to auscultation bilaterally, no increased work of breathing Cardio: Other: Regular rate, regular rhythm, 2+ bilateral radial pedal pulses GI: Other: Soft, nontender, normoactive bowel sounds, nondistended, no obvious organomegaly Skin: Other: No jaundice, no pallor Neuro: Other: Alert oriented, speech is clear, no facial asymmetry, normal gait Extrem: Other: Old surgical scar on the left radial portion of the wrist were prior ORIF was performed, no clubbing, no cyanosis Psych: Other: Appropriate mood and affect, pleasant and cooperative, judgment and insight intact DS: Data Data Completed and Pending Completed studies during hospitalization: abdomen pelvis CT Labs on day of discharge: Labs fro
--- NOTE | 2023-07-01 13:07 | PCCCNOTE ---
On 07/01/23, the student, Linda Noel, provided care and completed [facility] documentation on this patient. I have reviewed the student's documentation and agree with the findings.
== END 2023-07-01 11:45 | disposition home or self-care (01) ==
LOC: ANHED 20:50 → ANH3MEDSUR 20:53
PROVIDERS: Internal Medicine; Nurse Practitioner; Admitting Provider Internal Medicine; Emergency Provider Student in an Organized Health Care Education/Training Program; PCP Internal Medicine; Visit Provider Internal Medicine
DX: K57.92 Diverticulitis of intestine, part unspecified, without perforation or abscess without bleeding (principal); K52.9 Noninfective gastroenteritis and colitis, unspecified; E87.6 Hypokalemia; E86.0 Dehydration; K22.70 Barrett's esophagus without dysplasia; Z20.822 Contact with and (suspected) exposure to COVID-19; K21.9 Gastro-esophageal reflux disease without esophagitis; E78.5 Hyperlipidemia, unspecified; I10 Essential (primary) hypertension; E11.65 Type 2 diabetes mellitus with hyperglycemia; R74.01 Elevation of levels of liver transaminase levels; K59.00 Constipation, unspecified; F41.9 Anxiety disorder, unspecified; K76.0 Fatty (change of) liver, not elsewhere classified; M81.0 Age-related osteoporosis without current pathological fracture; E83.42 Hypomagnesemia; G47.33 Obstructive sleep apnea (adult) (pediatric); Z98.890 Other specified postprocedural states; Z87.891 Personal history of nicotine dependence; Z79.890 Hormone replacement therapy; Z82.49 Family history of ischemic heart disease and other diseases of the circulatory system
CPT/HCPCS: 36415; 74177; 80048; 80053; 81001; 82274; 83036; 83605; 83690; 83735; 85025; 85610; 85730; 87493; 87637; 96361; 96365; 96366; 96367; 96375; 96376; 99285; A9270; C9113; G0378; J0744; J1630; J1836; J2405; J2765; J3475; J3480; J7030; J7040; Q9967

== ENCOUNTER 2023-09-13 12:19 | Outpatient (CLI) | payer BC, SELFPAY ==
--- NOTE | ~2023-09-13 | US_ITS ---
EXAMINATION: US FNA w image guidance DATE: 09/13/2023 13:20 INDICATION: Left parotid mass. TECHNIQUE: The procedure and its benefits and risks were discussed with the patient. Risks specifically discusse d included bleeding. The patient verbalized understanding of the risks and agreed to proceed. The lef t face was prepped and draped in the usual sterile manner. 1% lidocaine was used for local anesthesi a. 6 passes were made with a 25G needle into the lesion under ultrasound guidance. There were no im mediate complications. FINDINGS: Grayscale ultrasound images demonstrate needles advanced into a 15 x 9 mm hypoechoic mass in left par otid gland for biopsy. IMPRESSION: 1. Ultrasound-guided fine needle aspiration of a 15 mm mass in left parotid gland. Reviewed, dictated and finalized at location A. IMPRESSION: 1. Ultrasound-guided fine needle aspiration of a 15 mm mass in left parotid gl and.
== END 2023-09-13 12:20 | disposition home or self-care (01) ==
PROVIDERS: PCP Internal Medicine; Visit Provider Otolaryngology
DX: D11.0 Benign neoplasm of parotid gland (principal)
CPT/HCPCS: 10005; 88108; 88305

== ENCOUNTER 2024-11-23 13:22 | Outpatient (CLI) | payer BC, SELFPAY ==
--- NOTE | ~2024-11-23 | MR_ITS ---
MRI of right elbow CLINICAL HISTORY: Pain, paresthesia TECHNIQUE: Proton-density and proton-density fat-sat images were performed in the axial, sagittal, an d coronal planes. FINDINGS: Ulnar collateral ligament is intact. Radial collateral ligament and the lateral ulnar colla teral ligament appear intact. There is severe tendinosis of the common extensor tendon origin at the lateral epicondyle of the humerus. Common flexor tendon origin is intact with minimal tendinosis. Bone marrow signals are unremarkable. No osseous or articular abnormality evident at the elbow joint. No significant joint effusion. Biceps, brachialis, and triceps tendons are intact. Visualized musculature unremarkable. No soft tiss ue mass or fluid collection seen. IMPRESSION: Severe tendinosis of the common extensor tendon origin at the lateral epicondyle of the humerus. Reviewed, dictated and finalized at [facility]. IMPRESSION: Severe tendinosis of the common extensor tendon origin at the lateral epicondyl e of the humerus.
== END 2024-11-23 13:23 | disposition home or self-care (01) ==
LOC: GOSHIMG 13:22
PROVIDERS: PCP Nurse Practitioner Family; Visit Provider Nurse Practitioner Family
DX: M77.11 Lateral epicondylitis, right elbow (principal)
CPT/HCPCS: 73221